=== PATIENT | female | born 1975 | race Caucasian/White ===

== ENCOUNTER 2016-04-01 15:16 | Emergency (ER) | payer OTHER ==
[~2016-04-01] VITALS: Wt 72.6 kg
[~2016-04-01 15:16] MED LIST: ANAPROX DS550 MG PO; ANTIVERT/2525 MG PO; ATENOLOL25 MG PO; ATENOLOL50 MG PO; ATIVAN1 MG PO; BACTRIM DS 8001 TA1 PO; BACTROBAN2% TP; CLARITIN10 MG PO; CLINDAMYCIN HC300 MG PO; DARVOCET N 1001 TAB PO; EES400 MG PO; FLAGYL500 MG PO; FLEXERIL5 MG PO; HYDROCODONE BIT1 T11 PO; LEVAQUIN750 M1 PO; LINZESS145 MC1 PO; LOPRESSOR25 MG PO; MOTRIN800 MG PO; NAPROSYN500 MG PO; PARAFON FORTE500 MG PO; PERCOCET 325 MG1 TA2 PO; PREDNISONE20 MG PO; PREVACID30 M1 PO; PROTONIX40 MG PO; TENORMIN50 MG PO; THE MEDICINE S400 IU PO; TORADOL10 MG PO; TYLENOL W/CODEI1 TA2 PO; TYLENOL W/CODEI1 TA4 PO; ULTRAM50 MG PO; VICODIN 5/500 505 MG PO; ZITHROMAX Z PA250 MG PO; ZOLOFT50 MG PO; Zofran4 MG PO
[2016-04-01 15:21] VITALS: BP 114/77
[2016-04-01] MEDS ORDERED: ANAPROX DS550 MG PO (15:59)
[2016-04-01] MEDS ORDERED: CLINDAMYCIN HC300 MG PO (15:59)
== END 2016-04-01 15:35 | disposition home or self-care (01) ==
LOC: ED 15:16
DX: K08.89 Other specified disorders of teeth and supporting structures (principal); Z88.0 Allergy status to penicillin; Z88.1 Allergy status to other antibiotic agents; Z88.8 Allergy status to other drugs, medicaments and biological substances; Z91.040 Latex allergy status

== ENCOUNTER → 2016-07-06 | Outpatient (CLI) | payer OTHER ==
[2016-07-06 16:50] LABS: BASO % 0.4 % (0.0-1.0); EOS # 0.2 10*3/uL (0.0-0.4); HEMATOCRIT 36.7 % (37.0-47.0); HEMOGLOBIN 11.5 g/dl (12.0-16.0); LYMPH # 1.7 10*3/uL (1.3-4.4); LYMPH % 29.2 % (27.0-41.0); MEAN CELL VOLUME 77.6 fl (81.0-99.0); MEAN CORPUSCULAR HGB 24.3 pg (27.0-31.0); MEAN CORPUSCULAR HGB CONC 31.3 g/dl (33.0-37.0); MEAN PLATELET VOLUME 10.8 fl (9.6-12.3); MONO # 0.6 10*3/uL (0.1-1.0); MONO % 10.7 % (3.0-9.0); NEUT # 3.2 10*3/uL (2.3-7.9); NEUT % 56.5 % (47.0-73.0); PLATELET COUNT AUTOMATED 272 10*3/uL (130-400); RED BLOOD COUNT 4.73 10*6/uL (4.10-5.10); RED CELL DISTRI WIDTH 21.4 % (0-14.5); WHITE BLOOD COUNT 5.7 10*3/uL (4.8-10.8)
[2016-07-06 16:53] LABS: BILIRUBIN NEGATIVE (NEGATIVE); BLOOD 3+ (NEGATIVE); CLARITY SL CLOUDY (CLEAR); COLOR YELLOW (YELLOW); GLUCOSE NEGATIVE (NEGATIVE); KETONE NEGATIVE (NEGATIVE); LEUKO ESTERASE TRACE (NEGATIVE); NITRITE NEGATIVE (NEGATIVE); PH 6.5 (5.0-9.0); PROTEIN NEGATIVE (NEGATIVE); UROBILINOGEN 0.2 E.U./dl (0.2-1.0)
[2016-07-06 17:00] LABS: BACTERIA 1+
== END | disposition home or self-care (01) ==
LOC: LAB 16:16
PROVIDERS: Pediatrics
DX: J02.9 Acute pharyngitis, unspecified (principal); R06.02 Shortness of breath; R07.89 Other chest pain

== ENCOUNTER → 2016-07-09 | Outpatient (CLI) | payer OTHER | END | disposition home or self-care (01) | LOC: LAB 12:47 | DX: R30.9 Painful micturition, unspecified (principal) ==

== ENCOUNTER 2016-07-21 12:44 | Emergency (ER) | payer OTHER ==
[~2016-07-21] VITALS: Ht 162.5 cm; Wt 68.0 kg
[2016-07-21 13:01] VITALS: BP 106/77
[2016-07-21 13:22] LABS: BILIRUBIN NEGATIVE (NEGATIVE); BLOOD 2+ (NEGATIVE); CLARITY CLEAR (CLEAR); COLOR YELLOW (YELLOW); GLUCOSE NEGATIVE (NEGATIVE); KETONE NEGATIVE (NEGATIVE); LEUKO ESTERASE NEGATIVE (NEGATIVE); NITRITE NEGATIVE (NEGATIVE); PROTEIN NEGATIVE (NEGATIVE); SPECIFIC GRAVITY 1.015 (1.005-1.030); UROBILINOGEN 0.2 E.U./dl (0.2-1.0)
[2016-07-21 13:36] LABS: BASO % 0.4 % (0.0-1.0); EOS # 0.1 10*3/uL (0.0-0.4); HEMATOCRIT 38.6 % (37.0-47.0); HEMOGLOBIN 12.3 g/dl (12.0-16.0); LYMPH # 1.4 10*3/uL (1.3-4.4); LYMPH % 19.3 % (27.0-41.0); MEAN CELL VOLUME 78.1 fl (81.0-99.0); MEAN CORPUSCULAR HGB 24.9 pg (27.0-31.0); MEAN CORPUSCULAR HGB CONC 31.9 g/dl (33.0-37.0); MEAN PLATELET VOLUME 10.5 fl (9.6-12.3); MONO # 0.5 10*3/uL (0.1-1.0); MONO % 6.8 % (3.0-9.0); NEUT # 5.1 10*3/uL (2.3-7.9); NEUT % 72.2 % (47.0-73.0); PLATELET COUNT AUTOMATED 289 10*3/uL (130-400); RED BLOOD COUNT 4.94 10*6/uL (4.10-5.10); RED CELL DISTRI WIDTH 21.5 % (0-14.5)
[2016-07-21 13:46] LABS: RBC 16-20 rbc/hpf (0-2)
[2016-07-21 13:47] LABS: BACTERIA TRACE; URINE REFLEX COMMENT YES (NO)
[2016-07-21 13:52] LABS: ALBUMIN 3.6 gm/dl (3.1-4.5); ALKALINE PHOSPHATASE 131 U/L (45-117); BILIRUBIN, TOTAL 0.2 mg/dl (0.2-1.0); BUN 15 mg/dl (7-24); CARBON DIOXIDE 29 mmol/L (21-32); CHLORIDE 108 mmol/L (98-107); EST GLOM FILT AFRICAN AMERICAN > 60 ml/min; GLUCOSE 79 mg/dL (65-99); POTASSIUM 4.9 mmol/L (3.5-5.1); SGOT/AST 25 IU/L (3-35); SGPT/ALT 34 U/L (12-78); SODIUM 142 mmol/L (136-145); TOTAL PROTEIN 7.6 gm/dL (6.4-8.2)
[2016-07-21] MEDS ORDERED: ZOFRAN4 MG PO (15:38)
[2016-07-21] MEDS ORDERED: MIRALAX POWDER17 G1 PO (15:38)
== END 2016-07-21 14:41 | disposition home or self-care (01) ==
LOC: ED 12:44
PROVIDERS: Emergency Medicine; Nurse Practitioner Family
DX: K59.00 Constipation, unspecified (principal); Z98.51 Tubal ligation status; Z79.899 Other long term (current) drug therapy; Z88.1 Allergy status to other antibiotic agents; Z88.0 Allergy status to penicillin; Z91.040 Latex allergy status

== ENCOUNTER → 2016-07-31 | Outpatient (CLI) | payer OTHER ==
[~2016-07-31] MED LIST changes: +MIRALAX POWDER17 G1 PO; +ZOFRAN4 MG PO
== END | disposition home or self-care (01) ==
LOC: US 17:00
DX: R10.2 Pelvic and perineal pain (principal); Z98.51 Tubal ligation status

== ENCOUNTER → 2016-09-07 | Outpatient (CLI) | payer OTHER | END | disposition home or self-care (01) | LOC: RAD 16:33 | DX: M25.431 Effusion, right wrist (principal); M19.031 Primary osteoarthritis, right wrist; M25.421 Effusion, right elbow; M25.631 Stiffness of right wrist, not elsewhere classified; Z91.81 History of falling ==

== ENCOUNTER → 2016-09-18 | Outpatient (CLI) | payer OTHER ==
[2016-09-18 17:01] LABS: BASO % 0.4 % (0.0-1.0); EOS # 0.2 10*3/uL (0.0-0.4); EOS % 2.7 % (1.0-4.0); HEMOGLOBIN 12.2 g/dl (12.0-16.0); LYMPH % 25.9 % (27.0-41.0); MEAN CELL VOLUME 81.9 fl (81.0-99.0); MEAN PLATELET VOLUME 10.9 fl (9.6-12.3); MONO # 0.6 10*3/uL (0.1-1.0); MONO % 7.4 % (3.0-9.0); NEUT # 4.8 10*3/uL (2.3-7.9); NEUT % 63.5 % (47.0-73.0); PLATELET COUNT AUTOMATED 283 10*3/uL (130-400); RED BLOOD COUNT 4.52 10*6/uL (4.10-5.10); RED CELL DISTRI WIDTH 16.5 % (0-14.5); WHITE BLOOD COUNT 7.5 10*3/uL (4.8-10.8)
[2016-09-18 17:31] LABS: ALBUMIN 3.8 gm/dl (3.1-4.5); ALKALINE PHOSPHATASE 119 U/L (45-117); BILIRUBIN, TOTAL 0.2 mg/dl (0.2-1.0); BUN 17 mg/dl (7-24); CARBON DIOXIDE 26 mmol/L (21-32); CHLORIDE 108 mmol/L (98-107); EST GLOM FILT AFRICAN AMERICAN > 60 ml/min; GLUCOSE 81 mg/dL (65-99); IRON 111 ug/dL (50-170); IRON SATURATION 25 %; SGOT/AST 15 IU/L (3-35); SGPT/ALT 26 U/L (12-78); SODIUM 144 mmol/L (136-145); TOTAL PROTEIN 7.5 gm/dL (6.4-8.2); UIBC 317 ug/dL (110-365)
== END | disposition home or self-care (01) ==
LOC: LAB 16:22 → US 17:00
PROVIDERS: Family Medicine
DX: N28.1 Cyst of kidney, acquired (principal); M48.07 Spinal stenosis, lumbosacral region; I10 Essential (primary) hypertension; K21.9 Gastro-esophageal reflux disease without esophagitis; E61.1 Iron deficiency; N32.89 Other specified disorders of bladder; Z87.448 Personal history of other diseases of urinary system

== ENCOUNTER → 2016-10-24 | Day surgery (SDC) | payer OTHER ==
[~2016-10-24] VITALS: Ht 162.5 cm; Wt 71.2 kg
[2016-10-24] VITALS (8 sets, daily range): BP systolic 103–112; BP diastolic 60–69
[~2016-10-24] MED LIST changes: +NEURONTIN100 MG PO
--- NOTE | ~2016-10-24 | O ---
[place], [place] OPERATIVE NOTE NAME: CHEL HAIR UNIT #: [id number] ROOM: DOCTOR: VANDANA PEREZ MD BIRTHDATE: [birth year] DOS: 10/24/2016 PREOPERATIVE DIAGNOSIS: Squamous papilloma of the uvula. POSTOPERATIVE DIAGNOSIS: Squamous papilloma of the uvula. PROCEDURE: Excisional biopsy of squamous papilloma the uvula. SURGEON: Dr. Perez. ANESTHESIA: General endotracheal. ESTIMATED BLOOD LOSS: Less than 5 mL. COMPLICATIONS: None. ASSISTANTS: None. INDICATIONS: The patient is a 41-year-old white female who was noted to have small lesion involving the uvula near the base. She was referred to ENT for excisional biopsy. The patient was taken to the operating room for excisional biopsy of this lesion. OPERATIVE FINDINGS AND PROCEDURE: Following induction of general endotracheal anesthesia, the patient was positioned supine on the OR table. She was draped in a standard fashion for oral surgery. The mouth was exposed using McIvor retractor. A small less than 1 cm squamous papilloma was excised from the left base of the uvula using sharp dissection. Minor bleeding was controlled with electrical cautery. The excised specimen was submitted to pathology for histologic analysis. At the end of the case, all instrument and sponge counts were correct. The patient was awakened, extubated and transported to PACU in satisfactory condition. VANDANA PEREZ MD CM:OPRECORD:OPERATIVE NOTE [id number] VANDANA PEREZ MD 10/24/16 1138 interface
== END | disposition home or self-care (01) ==
LOC: SDC 10-22 14:00
DX: D10.39 Benign neoplasm of other parts of mouth (principal); F41.0 Panic disorder [episodic paroxysmal anxiety]; K21.9 Gastro-esophageal reflux disease without esophagitis; F41.9 Anxiety disorder, unspecified; J45.909 Unspecified asthma, uncomplicated; Z98.51 Tubal ligation status; Z87.891 Personal history of nicotine dependence

== ENCOUNTER → 2017-04-12 | Day surgery (SDC) | payer OTHER ==
[~2017-04-12] VITALS: Ht 162.5 cm; Wt 74.8 kg
--- NOTE | ~2017-04-12 | O ---
[place], [place] OPERATIVE NOTE NAME: CHEL HAIR UNIT #: [id number] ROOM: DOCTOR: SCOTT WOODWARDMACFORMERLY [facility] BIRTHDATE: [birth year] DOS: 04/12/2017 GASTROENDOSCOPIC REPORT INDICATIONS: A 41 years old patient, who presented with chief complaint of dysphagia and dyspepsia. The patient on Protonix. The patient with epigastric distress. The patient is taking Protonix b.i.d. antireflux. ALLERGIES: PENICILLIN. FAMILY HISTORY: Noncontributory. PAST SURGICAL HISTORY: Tubal ligation and diverticulosis. PAST MEDICAL HISTORY: Tachycardia, asthma secondary to reflux. SOCIAL HISTORY: Nonsmoker, has stopped, and nonalcohol consumer. She has been exposed; however, secondhand smoke. PROCEDURE: Today's procedure part of investigation is panendoscopy plus biopsy plus esophageal balloon dilation. PREMEDICATION: Versed and Diprivan. SCOPE: Olympus forward-viewing gastroscope Q10 video. REPORT: After putting the patient in the left lateral position and after application of lubricant to the scope, the scope was introduced. Thereafter, under direct visualization, advanced through the length of esophagus without difficulty. Gastric pouch was entered. Small hiatal hernia was noticed. This was about 1.5 cm. Gastric pouch was entered. Gastritis seen. Duodenal bulb, second and third part within normal limits. Antral biopsy obtained. Photographic series of the hiatal hernia was obtained. The patient extubated to proximal stomach, a balloon was introduced, size 20 was chosen, and esophagus was dilated. The highest point of resistance is upper esophagus and dilated with balloon size 20. The patient extubated, tolerated procedure well. IMPRESSION: Esophageal stricture, status post balloon dilation in upper esophagus, which could be secondary to reflux, small hiatal hernia, gastritis of mild degree. PLAN AND DISCUSSION: This patient complains of reflux matters being in her throat and sometimes in her nostril, so this severe reflux is leading to her asthmatic condition as well, which is perhaps as one of the etiologies of it. Therefore, we are going to use prokinetics. We are going to try 2.5 mg of loperamide an hour a.c. dinner and if she tolerates and no dyskinesia noticed, then we will increase to 5 mg daily. Antireflux measures, elevation of the head of the bed 6 inch all time at least, and avoiding solid food ingestion 5 hours prior to going to bed and clinical reassessment, and she does not need to be on Protonix 40 mg b.i.d. 1 would be suffice. Gaviscon 1 at bedtime would [place], [place] OPERATIVE NOTE NAME: CHEL HAIR UNIT #: [id number] ROOM: DOCTOR: IAN CHAVEZ MD BIRTHDATE: [birth year] complement the treatment. IAN CHAVEZ MD CM:OPRECORD:OPERATIVE NOTE [id number] [id number] IAN CHAVEZ MD 04/12/17 1454 interface
[2017-04-12 11:50] VITALS: BP 101/67
[2017-04-12 14:06] VITALS: BP 97/59
[2017-04-12 14:20] VITALS: BP 106/62
[2017-04-12 14:34] VITALS: BP 111/65
== END ==
LOC: SDC 04-11 08:45
DX: K22.2 Esophageal obstruction (principal); K44.9 Diaphragmatic hernia without obstruction or gangrene; K29.50 Unspecified chronic gastritis without bleeding; K21.9 Gastro-esophageal reflux disease without esophagitis; Z88.0 Allergy status to penicillin; Z88.8 Allergy status to other drugs, medicaments and biological substances; Z98.51 Tubal ligation status; J45.909 Unspecified asthma, uncomplicated; F41.0 Panic disorder [episodic paroxysmal anxiety]; Z79.899 Other long term (current) drug therapy

== ENCOUNTER 2017-05-03 14:51 | Emergency (ER) | payer OTHER ==
[~2017-05-03] VITALS: Ht 162.5 cm; Wt 74.8 kg
[2017-05-03 15:32] LABS: BASO % 0.4 % (0.0-1.0); EOS # 0.2 10*3/uL (0.0-0.4); EOS % 2.8 % (1.0-4.0); HEMATOCRIT 40.4 % (37.0-47.0); HEMOGLOBIN 13.1 g/dl (12.0-16.0); LYMPH # 1.2 10*3/uL (1.3-4.4); LYMPH % 22.3 % (27.0-41.0); MEAN CELL VOLUME 83.5 fl (81.0-99.0); MEAN CORPUSCULAR HGB 27.1 pg (27.0-31.0); MEAN CORPUSCULAR HGB CONC 32.4 g/dl (33.0-37.0); MEAN PLATELET VOLUME 10.3 fl (9.6-12.3); MONO # 0.5 10*3/uL (0.1-1.0); MONO % 8.8 % (3.0-9.0); NEUT # 3.6 10*3/uL (2.3-7.9); NEUT % 65.5 % (47.0-73.0); PLATELET COUNT AUTOMATED 303 10*3/uL (130-400); RED BLOOD COUNT 4.84 10*6/uL (4.10-5.10); RED CELL DISTRI WIDTH 15.7 % (0-14.5); WHITE BLOOD COUNT 5.4 10*3/uL (4.8-10.8)
[2017-05-03 15:47] LABS: ALBUMIN 3.7 gm/dl (3.1-4.5); ALKALINE PHOSPHATASE 112 U/L (45-117); BUN 15 mg/dl (7-24); CHLORIDE 107 mmol/L (98-107); CREATININE 0.92 mg/dL (0.55-1.02); LIPASE 189 U/L (73-393); POTASSIUM 3.7 mmol/L (3.5-5.1); SGOT/AST 20 IU/L (3-35); SGPT/ALT 32 U/L (12-78); SODIUM 142 mmol/L (136-145); TOTAL PROTEIN 7.8 gm/dL (6.4-8.2)
[2017-05-03 16:27] LABS: BILIRUBIN NEGATIVE (NEGATIVE); BLOOD 2+ (NEGATIVE); CLARITY CLEAR (CLEAR); COLOR YELLOW (YELLOW); GLUCOSE NEGATIVE (NEGATIVE); KETONE NEGATIVE (NEGATIVE); LEUKO ESTERASE NEGATIVE (NEGATIVE); NITRITE NEGATIVE (NEGATIVE); PH 5.5 (5.0-9.0); SPECIFIC GRAVITY 1.015 (1.005-1.030); UROBILINOGEN 0.2 E.U./dl (0.2-1.0)
[2017-05-03 16:35] VITALS: BP 106/66
[2017-05-03 16:37] LABS: BACTERIA 1+; MUCOUS TRACE
[2017-05-03] MEDS ORDERED: BENADRYL25 M2 PO (17:25)
[2017-05-03] MEDS ORDERED: ZOFRAN ODT4 MG SL (17:25)
== END 2017-05-03 17:32 | disposition home or self-care (01) ==
LOC: ED 14:51
PROVIDERS: Nurse Practitioner Family
DX: R11.2 Nausea with vomiting, unspecified (principal); R19.7 Diarrhea, unspecified; R42 Dizziness and giddiness; Z88.0 Allergy status to penicillin; Z91.040 Latex allergy status

== ENCOUNTER 2017-08-24 17:42 | Emergency (ER) | payer OTHER ==
[~2017-08-24] VITALS: Ht 162.5 cm; Wt 72.6 kg
[~2017-08-24 17:42] MED LIST changes: +BENADRYL25 M2 PO; +ZOFRAN ODT4 MG SL
[2017-08-24 17:44] VITALS: BP 128/74
== END 2017-08-24 18:00 | disposition home or self-care (01) ==
LOC: ED 17:42
DX: S30.861A Insect bite (nonvenomous) of abdominal wall, initial encounter (principal); K21.9 Gastro-esophageal reflux disease without esophagitis; Z79.899 Other long term (current) drug therapy; Z88.1 Allergy status to other antibiotic agents; Z88.0 Allergy status to penicillin; Z88.8 Allergy status to other drugs, medicaments and biological substances; W57.XXXA Bitten or stung by nonvenomous insect and other nonvenomous arthropods, initial encounter; Y93.89 Activity, other specified; Y92.89 Other specified places as the place of occurrence of the external cause; Y99.9 Unspecified external cause status

== ENCOUNTER 2017-12-01 17:08 | Emergency (ER) | payer OTHER ==
[~2017-12-01] VITALS: Ht 162.5 cm; Wt 74.8 kg
[2017-12-01 17:11] VITALS: BP 117/67
[2017-12-01 18:26] LABS: BILIRUBIN NEGATIVE (NEGATIVE); BLOOD 3+ (NEGATIVE); CLARITY CLEAR (CLEAR); COLOR YELLOW (YELLOW); GLUCOSE NEGATIVE (NEGATIVE); KETONE NEGATIVE (NEGATIVE); LEUKO ESTERASE TRACE (NEGATIVE); NITRITE NEGATIVE (NEGATIVE); PH 5.5 (5.0-9.0); SPECIFIC GRAVITY <= 1.005 (1.005-1.030); UROBILINOGEN 0.2 E.U./dl (0.2-1.0)
[2017-12-01] MEDS ORDERED: PREDNISONE50 MG PO (18:29)
[2017-12-01] MEDS ORDERED: NAPROSYN500 MG PO (18:29)
[2017-12-01] MEDS ORDERED: CYCLOBENZAPRINE10 MG PO (18:29)
[2017-12-01 18:49] LABS: EPITHELIAL CELLS 0-2; RBC 0-2 rbc/hpf (0-2); WBC 0-2 wbc/hpf (0-5)
== END 2017-12-01 19:05 | disposition home or self-care (01) ==
LOC: ED 17:08
PROVIDERS: Nurse Practitioner Family
DX: M54.16 Radiculopathy, lumbar region (principal); M54.5 Low back pain; Z88.0 Allergy status to penicillin; Z88.1 Allergy status to other antibiotic agents; Z91.040 Latex allergy status; Z88.8 Allergy status to other drugs, medicaments and biological substances; Z79.899 Other long term (current) drug therapy; Z98.51 Tubal ligation status

== ENCOUNTER → 2017-12-25 | Outpatient (CLI) | payer OTHER ==
[~2017-12-25] MED LIST changes: +CYCLOBENZAPRINE10 MG PO; +Motrin,Rufen800 MG PO; +PREDNISONE50 MG PO
[2017-12-26 07:08] LABS: FOLLICLE STIMULATING HORMONE 5.7 mIU/mL (.); LUTEINIZING HORMONE 004283 4.3 mIU/mL (.); PROLACTIN 004465 17.6 ng/mL (4.8-23.3)
== END | disposition home or self-care (01) ==
LOC: LAB 13:59 → US 14:00
PROVIDERS: Internal Medicine
DX: R53.83 Other fatigue (principal); N93.8 Other specified abnormal uterine and vaginal bleeding; M54.9 Dorsalgia, unspecified; R19.00 Intra-abdominal and pelvic swelling, mass and lump, unspecified site

== ENCOUNTER 2017-12-30 08:37 | Emergency (ER) | payer OTHER ==
[~2017-12-30] VITALS: Ht 162.5 cm; Wt 77.1 kg
--- NOTE | ~2017-12-30 | EKG ---
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
[~2017-12-30 08:37] MED LIST changes: -Motrin,Rufen800 MG PO
[2017-12-30 09:41] LABS: BASO % 0.4 % (0.0-1.0); EOS # 0.1 10*3/uL (0.0-0.4); EOS % 1.6 % (1.0-4.0); HEMATOCRIT 37.2 % (37.0-47.0); HEMOGLOBIN 11.9 g/dl (12.0-16.0); LYMPH # 1.2 10*3/uL (1.3-4.4); LYMPH % 23.1 % (27.0-41.0); MEAN CELL VOLUME 84.2 fl (81.0-99.0); MEAN CORPUSCULAR HGB 26.9 pg (27.0-31.0); MEAN PLATELET VOLUME 10.4 fl (9.6-12.3); MONO # 0.3 10*3/uL (0.1-1.0); MONO % 5.9 % (3.0-9.0); NEUT # 3.5 10*3/uL (2.3-7.9); NEUT % 68.8 % (47.0-73.0); PLATELET COUNT AUTOMATED 290 10*3/uL (130-400); RED BLOOD COUNT 4.42 10*6/uL (4.10-5.10); RED CELL DISTRI WIDTH 17.2 % (0-14.5); WHITE BLOOD COUNT 5.1 10*3/uL (4.8-10.8)
[2017-12-30 09:48] LABS: ACT PARTIAL THROMBO TIME 18.7 SECONDS (20.8-31.5); INTERNATIONAL NORM RATIO 1.1 (2.0-3.5)
[2017-12-30 09:55] LABS: ALBUMIN 3.6 gm/dl (3.1-4.5); ALKALINE PHOSPHATASE 78 U/L (45-117); BUN 16 mg/dl (7-24); CHLORIDE 109 mmol/L (98-107); CREATININE 0.97 mg/dL (0.55-1.02); LIPASE 206 U/L (73-393); POTASSIUM 4.1 mmol/L (3.5-5.1); SGOT/AST 15 IU/L (3-35); SGPT/ALT 21 U/L (12-78); SODIUM 139 mmol/L (136-145); TOTAL PROTEIN 7.3 gm/dL (6.4-8.2)
[2017-12-30 09:57] LABS: BETA-HCG, QUANT < 1.0 mIU/mL (1-3); TROPONIN I < 0.015 ng/ml (<0.045)
[2017-12-30 10:56] LABS: CLARITY SL CLOUDY (CLEAR); COLOR YELLOW (YELLOW); GLUCOSE NEGATIVE (NEGATIVE)
[2017-12-30 10:57] LABS: BILIRUBIN NEGATIVE (NEGATIVE)
[2017-12-30 10:58] LABS: BLOOD 3+ (NEGATIVE); KETONE 2+ (NEGATIVE); LEUKO ESTERASE NEGATIVE (NEGATIVE); NITRITE NEGATIVE (NEGATIVE); SPECIFIC GRAVITY 1.005 (1.005-1.030); UROBILINOGEN 0.2 E.U./dl (0.2-1.0)
[2017-12-30 11:04] LABS: BACTERIA 2+
[2017-12-30 14:30] VITALS: BP 112/62
[2017-12-30] MEDS ORDERED: ZOFRAN ODT4 MG SL (14:31)
[2017-12-30] MEDS ORDERED: Motrin,Rufen800 MG PO (14:31)
== END 2017-12-30 15:08 | disposition home or self-care (01) ==
LOC: ED 08:37
PROVIDERS: Emergency Medicine
DX: G43.909 Migraine, unspecified, not intractable, without status migrainosus (principal); R11.2 Nausea with vomiting, unspecified; K21.9 Gastro-esophageal reflux disease without esophagitis; Z88.1 Allergy status to other antibiotic agents; Z88.0 Allergy status to penicillin; Z91.040 Latex allergy status; Z88.8 Allergy status to other drugs, medicaments and biological substances; Z79.899 Other long term (current) drug therapy; Z98.51 Tubal ligation status

== ENCOUNTER → 2018-01-14 | Outpatient (CLI) | payer OTHER ==
[~2018-01-14] MED LIST changes: +Motrin,Rufen800 MG PO
== END | disposition home or self-care (01) ==
LOC: US 01-07 13:30
DX: N93.8 Other specified abnormal uterine and vaginal bleeding (principal)

== ENCOUNTER 2018-06-11 19:51 | Emergency (ER) | payer OTHER ==
[~2018-06-11] VITALS: Ht 157.4 cm; Wt 78.5 kg
[2018-06-11 19:51] VITALS: BP 119/77
[2018-06-11] MEDS ORDERED: TAMIFLU 75MG CA75 MG PO (23:49)
== END 2018-06-12 00:10 | disposition home or self-care (01) ==
LOC: ED 19:51
DX: J06.9 Acute upper respiratory infection, unspecified (principal); R05 Cough; K21.9 Gastro-esophageal reflux disease without esophagitis; G43.909 Migraine, unspecified, not intractable, without status migrainosus; Z98.51 Tubal ligation status; Z98.890 Other specified postprocedural states; Z79.899 Other long term (current) drug therapy; Z88.1 Allergy status to other antibiotic agents; Z88.0 Allergy status to penicillin; Z91.040 Latex allergy status

== ENCOUNTER → 2018-09-01 | Outpatient (CLI) | payer OTHER ==
[~2018-09-01] MED LIST changes: +TAMIFLU 75MG CA75 MG PO
== END | disposition home or self-care (01) ==
LOC: ORTHO 01:18
DX: M25.431 Effusion, right wrist (principal); R53.1 Weakness

== ENCOUNTER → 2018-12-15 | Outpatient (CLI) | payer OTHER | END | disposition home or self-care (01) | LOC: MRI 08:43 | DX: S63.599A Other specified sprain of unspecified wrist, initial encounter (principal); R20.0 Anesthesia of skin; X58.XXXA Exposure to other specified factors, initial encounter; Y93.89 Activity, other specified; Y92.89 Other specified places as the place of occurrence of the external cause; Y99.8 Other external cause status ==

== ENCOUNTER → 2019-01-21 | Outpatient (CLI) | payer OTHER | END | disposition home or self-care (01) | LOC: CARD 09:42 | DX: I10 Essential (primary) hypertension (principal); K21.9 Gastro-esophageal reflux disease without esophagitis; N30.01 Acute cystitis with hematuria; R00.2 Palpitations; R42 Dizziness and giddiness ==

== ENCOUNTER → 2019-01-23 | Outpatient (CLI) | payer OTHER ==
[2019-01-23 09:24] LABS: HEMATOCRIT 44.4 % (37.0-47.0); HEMOGLOBIN 14.3 g/dl (12.0-16.0); MEAN CELL VOLUME 89.9 fl (81.0-99.0); MEAN CORPUSCULAR HGB 28.9 pg (27.0-31.0); MEAN CORPUSCULAR HGB CONC 32.2 g/dl (33.0-37.0); MEAN PLATELET VOLUME 11.1 fl (9.6-12.3); RED BLOOD COUNT 4.94 10*6/uL (4.10-5.10); RED CELL DISTRI WIDTH 13.3 % (0-14.5); WHITE BLOOD COUNT 4.6 10*3/uL (4.8-10.8)
== END | disposition home or self-care (01) ==
LOC: LAB 08:17
PROVIDERS: Physician Assistant
DX: I10 Essential (primary) hypertension (principal); K21.9 Gastro-esophageal reflux disease without esophagitis; R00.2 Palpitations; R42 Dizziness and giddiness

== ENCOUNTER → 2019-02-24 | Outpatient (CLI) | payer OTHER | END | disposition home or self-care (01) | LOC: CARD 12:00 | DX: R00.2 Palpitations (principal) ==

== ENCOUNTER 2020-04-29 15:43 | Emergency (ER) | payer OTHER ==
[~2020-04-29] VITALS: Ht 162.5 cm; Wt 79.4 kg
[2020-04-29 15:55] VITALS: BP 128/73
== END 2020-04-29 21:04 | disposition home or self-care (01) ==
LOC: ED 15:43
DX: S61.212A Laceration without foreign body of right middle finger without damage to nail, initial encounter (principal); S61.214A Laceration without foreign body of right ring finger without damage to nail, initial encounter; Z88.1 Allergy status to other antibiotic agents; Z88.0 Allergy status to penicillin; Z91.040 Latex allergy status; Z88.6 Allergy status to analgesic agent; Z79.899 Other long term (current) drug therapy; W26.0XXA Contact with knife, initial encounter; Y93.89 Activity, other specified; Y92.238 Other place in hospital as the place of occurrence of the external cause; Y99.0 Civilian activity done for income or pay

== ENCOUNTER → 2020-05-12 | Outpatient (CLI) | payer OTHER | END | disposition home or self-care (01) | LOC: US 09:53 | PROVIDERS: ATTEND Nurse Practitioner Primary Care | DX: R22.0 Localized swelling, mass and lump, head (principal) ==

== ENCOUNTER → 2020-07-28 | Outpatient (CLI) | payer OTHER | END | disposition home or self-care (01) | LOC: RAD 12:56 | PROVIDERS: ATTEND Nurse Practitioner Primary Care | DX: M54.5 Low back pain (principal); M54.2 Cervicalgia; G89.29 Other chronic pain; M25.78 Osteophyte, vertebrae ==

== ENCOUNTER → 2020-08-04 | Outpatient (CLI) | payer OTHER | END | disposition home or self-care (01) | LOC: US 12:25 | PROVIDERS: ATTEND Nurse Practitioner Primary Care | DX: M79.662 Pain in left lower leg (principal); M79.89 Other specified soft tissue disorders ==

== ENCOUNTER → 2020-11-21 | Outpatient (CLI) | payer OTHER | END | disposition home or self-care (01) | LOC: MRI 13:52 | PROVIDERS: ATTEND Student in an Organized Health Care Education/Training Program | DX: M47.816 Spondylosis without myelopathy or radiculopathy, lumbar region (principal); M54.16 Radiculopathy, lumbar region ==

== ENCOUNTER 2021-11-05 14:39 | Emergency (ER) | payer OTHER ==
[2021-11-05 15:15] VITALS: BP 125/74
[2021-11-05] MEDS ORDERED: KETOROLAC10 MG PO (17:17)
[2021-11-05] MEDS ORDERED: PREDNISONE20 M1 PO (17:17)
== END 2021-11-05 17:35 | disposition home or self-care (01) ==
LOC: ED 14:39
DX: M54.16 Radiculopathy, lumbar region (principal); F17.200 Nicotine dependence, unspecified, uncomplicated; Z79.899 Other long term (current) drug therapy; Z88.1 Allergy status to other antibiotic agents; Z88.0 Allergy status to penicillin; Z91.040 Latex allergy status

== ENCOUNTER → 2022-07-04 | Outpatient (CLI) | payer OTHER ==
[~2022-07-04] MED LIST changes: +KETOROLAC10 MG PO; +PREDNISONE20 M1 PO
== END ==
LOC: MAMMO 09:00
PROVIDERS: ATTEND Nurse Practitioner Women's Health
DX: N63.13 Unspecified lump in the right breast, lower outer quadrant (principal); N64.4 Mastodynia

== ENCOUNTER → 2023-03-13 | Outpatient (CLI) | payer OTHER | END | disposition home or self-care (01) | LOC: US 01:25 | PROVIDERS: ATTEND Physician Assistant | DX: N28.1 Cyst of kidney, acquired (principal); K76.0 Fatty (change of) liver, not elsewhere classified ==

== ENCOUNTER → 2023-03-27 | Outpatient (CLI) | payer OTHER | END | disposition home or self-care (01) | LOC: NM 02:38 | PROVIDERS: ATTEND Physician Assistant | DX: R10.9 Unspecified abdominal pain (principal); R11.0 Nausea ==

== ENCOUNTER → 2023-12-03 | Outpatient (CLI) | payer OTHER | END | disposition home or self-care (01) | LOC: CARD 11-25 11:30 | PROVIDERS: ATTEND Physician Assistant | DX: R00.2 Palpitations (principal) ==

== ENCOUNTER 2024-01-31 11:45 | Emergency (ER) | payer OTHER ==
[~2024-01-31] VITALS: Ht 162.5 cm; Wt 81.2 kg
[2024-01-31] MEDS ORDERED: LORazepam 1 MG TAB PO ONE (12:25)
[2024-01-31 12:50] LABS: BASO % 0.6 % (0.0-1.0); EOS # 0.1 10*3/uL (0.0-0.4); EOS % 1.5 % (1.0-4.0); HEMATOCRIT 43.1 % (37.0-47.0); LYMPH # 1.3 10*3/uL (1.3-4.4); LYMPH % 25.2 % (27.0-41.0); MEAN CELL VOLUME 88.1 fl (81.0-99.0); MEAN CORPUSCULAR HGB 28.4 pg (27.0-31.0); MEAN CORPUSCULAR HGB CONC 32.3 g/dl (33.0-37.0); MEAN PLATELET VOLUME 10.8 fl (9.6-12.3); MONO # 0.3 10*3/uL (0.1-1.0); MONO % 6.1 % (3.0-9.0); NEUT # 3.5 10*3/uL (2.3-7.9); NEUT % 66.4 % (47.0-73.0); PLATELET COUNT AUTOMATED 296 10*3/uL (130-400); RED BLOOD COUNT 4.89 10*6/uL (4.10-5.10); RED CELL DISTRI WIDTH 13.9 % (0-14.5); WHITE BLOOD COUNT 5.2 10*3/uL (4.8-10.8)
[2024-01-31 13:08] LABS: BUN 18 mg/dl (9-23); CHLORIDE 108 mmol/L (98-107)
== END 2024-01-31 14:03 | disposition home or self-care (01) ==
LOC: ED 11:45
PROVIDERS: Nurse Practitioner Family
DX: F41.9 Anxiety disorder, unspecified (principal); R00.2 Palpitations; Z88.0 Allergy status to penicillin; Z88.1 Allergy status to other antibiotic agents; Z91.040 Latex allergy status; Z88.6 Allergy status to analgesic agent; Z88.8 Allergy status to other drugs, medicaments and biological substances; Z90.49 Acquired absence of other specified parts of digestive tract; Z98.51 Tubal ligation status; K21.9 Gastro-esophageal reflux disease without esophagitis

== ENCOUNTER → 2024-02-04 | Outpatient (CLI) | payer OTHER ==
[~2024-02-04] MED LIST changes: +METHOCARBAMOL750 M1 PO
== END | disposition home or self-care (01) ==
LOC: MAMMO 14:51
PROVIDERS: ATTEND Physician Assistant
DX: Z12.31 Encounter for screening mammogram for malignant neoplasm of breast (principal)

== ENCOUNTER 2024-02-06 04:12 | Emergency (ER) | payer OTHER ==
[~2024-02-06] VITALS: Wt 99.8 kg
[~2024-02-06 04:12] MED LIST changes: -METHOCARBAMOL750 M1 PO
[2024-02-06 04:28] VITALS: BP 121/80
[2024-02-06] MEDS ORDERED: METHOCARBAMOL 750 MG TAB PO ONE (06:00)
[2024-02-06] MEDS ORDERED: methylPREDNISolone sod succ 125 MG VIAL IM ONE (06:00)
[2024-02-06] MEDS ORDERED: PREDNISONE20 M1 PO (06:22)
[2024-02-06] MEDS ORDERED: METHOCARBAMOL750 M1 PO (06:22)
== END 2024-02-06 06:30 | disposition home or self-care (01) ==
LOC: ED 04:12
DX: M51.26 Other intervertebral disc displacement, lumbar region (principal); K21.9 Gastro-esophageal reflux disease without esophagitis; F41.9 Anxiety disorder, unspecified; J45.909 Unspecified asthma, uncomplicated; Z88.0 Allergy status to penicillin; Z88.1 Allergy status to other antibiotic agents; Z88.6 Allergy status to analgesic agent; Z88.8 Allergy status to other drugs, medicaments and biological substances; Z91.040 Latex allergy status; Z90.49 Acquired absence of other specified parts of digestive tract; Z98.51 Tubal ligation status

== ENCOUNTER 2024-02-18 19:06 | Emergency (ER) | payer OTHER ==
[~2024-02-18] VITALS: Ht 162.5 cm; Wt 81.6 kg
[~2024-02-18 19:06] MED LIST changes: +METHOCARBAMOL750 M1 PO
[2024-02-18 19:23] VITALS: BP 137/78
[2024-02-18] MEDS ORDERED: SODIUM CHLORIDE 0.9% 500 ML IV ONE (19:30)
[2024-02-18] MEDS ORDERED: Ondansetron Hydrochloride 4 MG/2 ML VIAL IV ONE (19:30)
[2024-02-18] MEDS ORDERED: Pantoprazole Sodium 40 MG VIAL IV ONE (19:30)
[2024-02-18] MEDS ORDERED: fentaNYL CITRATE 100 MCG/2 ML VIAL IV ONE (19:30)
[2024-02-18] MEDS ORDERED: IOHEXOL 300 MG/ML 100 ML VIAL IV ONE (19:40)
[2024-02-18 19:44] LABS: BILIRUBIN Negative (Negative); BLOOD 1+ (Negative); CLARITY Clear (Clear); COLOR Yellow (Yellow); GLUCOSE Negative (Negative); KETONE Negative (Negative); LEUKO ESTERASE 2+ (Negative); NITRITE Negative (Negative); PH 5.5 (4.5-8.0); UROBILINOGEN 0.2 E.U./dl (0.0-1.0)
[2024-02-18 19:52] LABS: BASO % 0.2 % (0.0-1.0); EOS # 0.1 10*3/uL (0.0-0.4); EOS % 0.9 % (1.0-4.0); HEMATOCRIT 44.6 % (37.0-47.0); MEAN CELL VOLUME 85.4 fl (81.0-99.0); MEAN CORPUSCULAR HGB 29.1 pg (27.0-31.0); MEAN CORPUSCULAR HGB CONC 34.1 g/dl (33.0-37.0); MEAN PLATELET VOLUME 10.5 fl (9.6-12.3); MONO # 0.8 10*3/uL (0.1-1.0); MONO % 7.2 % (3.0-9.0); NEUT # 8.7 10*3/uL (2.3-7.9); NEUT % 74.4 % (47.0-73.0); PLATELET COUNT AUTOMATED 242 10*3/uL (130-400); RED BLOOD COUNT 5.22 10*6/uL (4.10-5.10); RED CELL DISTRI WIDTH 14.6 % (0-14.5); WHITE BLOOD COUNT 11.6 10*3/uL (4.8-10.8)
[2024-02-18 20:01] LABS: BACTERIA 2+; MUCOUS TRACE; WBC 21-30 wbc/hpf (0-5)
[2024-02-18 20:09] LABS: ALKALINE PHOSPHATASE 119 U/L (46-116); BUN 17 mg/dl (9-23); CHLORIDE 108 mmol/L (98-107); LIPASE 55 U/L (12-53); POTASSIUM 3.9 mmol/L (3.4-5.1); SGPT/ALT 52 U/L (5-49); TOTAL PROTEIN 7.4 gm/dL (6.0-8.0)
[2024-02-18] MEDS ORDERED: Ciprofloxacin Hydrochloride 500 MG TAB PO ONE (22:35)
[2024-02-18] MEDS ORDERED: Ondansetron4 MG PO (22:36)
[2024-02-18] MEDS ORDERED: CIPRO500 MG PO (22:36)
== END 2024-02-18 22:42 | disposition home or self-care (01) ==
LOC: ED 19:06
PROVIDERS: Nurse Practitioner Family
DX: K52.9 Noninfective gastroenteritis and colitis, unspecified (principal); Z20.822 Contact with and (suspected) exposure to COVID-19; N39.0 Urinary tract infection, site not specified; F41.9 Anxiety disorder, unspecified; K21.9 Gastro-esophageal reflux disease without esophagitis; G43.909 Migraine, unspecified, not intractable, without status migrainosus; Z98.51 Tubal ligation status; Z88.0 Allergy status to penicillin; Z88.1 Allergy status to other antibiotic agents; Z88.6 Allergy status to analgesic agent; Z91.040 Latex allergy status; Z90.49 Acquired absence of other specified parts of digestive tract; J45.909 Unspecified asthma, uncomplicated

== ENCOUNTER 2025-03-03 14:03 | Emergency (ER) | payer OTHER ==
[~2025-03-03] VITALS: Wt 78.9 kg
[~2025-03-03 14:03] MED LIST changes: +CIPRO500 MG PO; +Ondansetron4 MG PO
[2025-03-03 14:21] VITALS: BP 128/70
[2025-03-03 15:04] LABS: BASO # 0.0 10*3/uL (0.0-0.1); BASO % 0.4 % (0.0-1.0); EOS # 0.2 10*3/uL (0.0-0.4); EOS % 2.1 % (1.0-4.0); MEAN CELL VOLUME 87.5 fl (81.0-99.0); MEAN CORPUSCULAR HGB 28.5 pg (27.0-31.0); MEAN PLATELET VOLUME 10.2 fl (9.6-12.3); MONO # 0.6 10*3/uL (0.1-1.0); MONO % 7.1 % (3.0-9.0); NEUT # 5.5 10*3/uL (2.3-7.9); NEUT % 66.8 % (47.0-73.0); NUCLEATED RED BLOOD CELL 0.0 % (0.0-0.0); NUCLEATED RED BLOOD CELL 0.0 10*3/uL (0.0-0.0); PLATELET COUNT AUTOMATED 339 10*3/uL (130-400); RED CELL DISTRI WIDTH 13.7 % (0-14.5)
[2025-03-03 15:16] LABS: ACT PARTIAL THROMBO TIME 24.6 SECONDS (20.0-32.1)
[2025-03-03 15:36] LABS: BUN 19 mg/dl (9-23)
[2025-03-03 15:44] LABS: BILIRUBIN Negative (Negative); BLOOD Trace-Lysed (Negative); CLARITY Clear (Clear); COLOR Yellow (Yellow); KETONE Negative (Negative); LEUKO ESTERASE Negative (Negative); NITRITE Negative (Negative); PH 5.5 (4.5-8.0); SPECIFIC GRAVITY 1.015 (1.001-1.030); UROBILINOGEN 0.2 E.U./dl (0.0-1.0)
[2025-03-03 15:52] LABS: BACTERIA 1+
== END 2025-03-03 17:12 | disposition home or self-care (01) ==
LOC: ED 14:03
PROVIDERS: Internal Medicine
DX: F41.9 Anxiety disorder, unspecified (principal); R20.2 Paresthesia of skin; Z87.891 Personal history of nicotine dependence; Z88.1 Allergy status to other antibiotic agents; Z88.0 Allergy status to penicillin; Z88.6 Allergy status to analgesic agent; Z91.040 Latex allergy status; Z79.899 Other long term (current) drug therapy